=== PATIENT | male | born 1970 | race African-American/Black ===

== ENCOUNTER 2017-03-09 18:41 | Emergency (ER) | payer OTHER ==
[~2017-03-09] VITALS: Ht 170.2 cm; Wt 80.9 kg
[~2017-03-09 18:41] MED LIST: AMOXICILLIN875 MG PO; BENICAR20 MG PO; KEFLEX500 MG PO; KENALOG,ARISTOC80 G1 TP; METOPROLOL TART50 MG PO; OMEGA 3-6-91200 MG PO; OMEPRAZOLE20 MG PO; PRAVACHOL80 MG PO; ULTRAM50 MG PO; ZOFRAN4 MG PO
[2017-03-09] MEDS ORDERED: ALTOPREV40 MG PO (19:00)
[2017-03-09 19:57] LABS: HEMATOCRIT 46.2 % (38.0-50.0); MCH 31.9 PG (29.0-34.0); MCHC 35.3 G/DL (30.0-36.0); MCV 90.4 FL (86-99); PLATELET COUNT 255 K/uL (156-360); RBC DIS.WIDTH-CV 12.1 % (11.8-14.6); RBC DIS.WIDTH-SD 40.3 % (39-53); RED BLOOD COUNT 5.11 M/uL (4.00-5.50); WHITE BLOOD COUNT 6.2 K/uL (4.1-10.2)
[2017-03-09 20:05] LABS: CHLORIDE 107 mEq/L (99-109); POTASSIUM 4.3 mEq/L (3.7-5.4); SODIUM 141 mEq/L (136-147)
[2017-03-09 20:07] LABS: GLUCOSE 81 mg/dL (70-99)
[2017-03-09 20:08] LABS: ANION GAP 8 MEQ/L (2-14)
[2017-03-09 20:09] LABS: TOTAL BILIRUBIN 0.6 mg/dL (0.0-1.0)
[2017-03-09 20:10] LABS: ALKALINE PHOSPHATASE 75 IU/L (3-129)
[2017-03-09 20:11] LABS: GFR ESTIMATE (CALCULATED) > 59 mL/min/
[2017-03-09 20:12] LABS: D-DIMER ELISA 0.46 mg/L FEU (< 0.57); UREA NITROGEN (BUN) 20 mg/dL (9-23)
[2017-03-09 20:20] LABS: TROP-I INTERPRETATION NEGATIVE; TROPONIN-I < 0.01 ng/mL (0.0-0.30)
[2017-03-09 21:28] VITALS: BP 120/76
== END 2017-03-09 21:29 | disposition home or self-care (01) ==
LOC: EME 18:41
PROVIDERS: Physician Assistant
DX: R00.2 Palpitations (principal); R06.02 Shortness of breath; I10 Essential (primary) hypertension; E78.5 Hyperlipidemia, unspecified
CPT/HCPCS: 71020; 80053; 84443; 84484; 85027; 85379; 93005; 99281; 99284

== ENCOUNTER 2017-11-09 05:53 | Emergency (ER) | payer OTHER ==
[~2017-11-09] VITALS: Ht 170.2 cm; Wt 76.0 kg
[~2017-11-09 05:53] MED LIST changes: +ALTOPREV40 MG PO
[2017-11-09 06:18] LABS: HEMATOCRIT 46.2 % (38.0-50.0); MCH 32.5 PG (29.0-34.0); MCHC 34.6 G/DL (30.0-36.0); MCV 93.7 FL (86-99); MEAN PLAT.VOLUME 9.8 uM^3 (9.0-12.4); PLATELET COUNT 219 K/uL (156-360); RBC DIS.WIDTH-CV 12.1 % (11.8-14.6); RBC DIS.WIDTH-SD 42.3 % (39-53); RED BLOOD COUNT 4.93 M/uL (4.00-5.50); WHITE BLOOD COUNT 4.9 K/uL (4.1-10.2)
[2017-11-09 06:25] LABS: CHLORIDE 107 mEq/L (99-109); POTASSIUM 4.1 mEq/L (3.7-5.4); SODIUM 142 mEq/L (136-147)
[2017-11-09 06:27] LABS: GLUCOSE 89 mg/dL (70-99)
[2017-11-09 06:28] LABS: ANION GAP 9 MEQ/L (2-14)
[2017-11-09 06:29] LABS: TOTAL BILIRUBIN 0.5 mg/dL (0.0-1.0)
[2017-11-09 06:31] LABS: ALKALINE PHOSPHATASE 77 IU/L (3-129); GFR ESTIMATE (CALCULATED) > 59 mL/min/ (58.99-99999)
[2017-11-09 06:32] LABS: UREA NITROGEN (BUN) 19 mg/dL (9-23)
[2017-11-09 07:45] LABS: ADD MIUA? NO; BILIRUBIN NEGATIVE; BLOOD NEGATIVE; COLOR YELLOW ((YELLOW)); GLUCOSE (STRIP) NEGATIVE; KETONES NEGATIVE; LEUKOCYTES NEGATIVE; NITRITE NEGATIVE; PROTEIN (STRIP) NEGATIVE; SPECIFIC GRAVITY 1.021 (1.000-1.030); UCUL ADDED? NO; UROBILINOGEN 0.2 MG/DL (0.2-1.0)
[2017-11-09] MEDS ORDERED: MIRALAX17 GM PO (10:20)
[2017-11-09 10:26] VITALS: BP 116/81
== END 2017-11-09 10:37 | disposition home or self-care (01) ==
LOC: EME 05:53
DX: S39.011A Strain of muscle, fascia and tendon of abdomen, initial encounter (principal); X58.XXXA Exposure to other specified factors, initial encounter; Y93.A9 Activity, other involving cardiorespiratory exercise; K59.00 Constipation, unspecified; N20.0 Calculus of kidney; R91.1 Solitary pulmonary nodule; I10 Essential (primary) hypertension; E78.5 Hyperlipidemia, unspecified
CPT/HCPCS: 74176; 80053; 81003; 85027; 99281; 99285; J1885

== ENCOUNTER 2018-02-24 11:25 | Observation (INO) | payer SELFPAY ==
[~2018-02-24] VITALS: Ht 170.2 cm; Wt 77.1 kg
[~2018-02-24 11:25] MED LIST changes: -ALTOPREV40 MG PO; +LOVASTATIN40 MG PO; +MIRALAX17 GM PO
[2018-02-24 12:28] LABS: HEMATOCRIT 47.9 % (38.0-50.0); MCH 32.7 PG (29.0-34.0); MCHC 35.5 G/DL (30.0-36.0); MCV 92.1 FL (86-99); PLATELET COUNT 259 K/uL (156-360); RBC DIS.WIDTH-CV 12.3 % (11.8-14.6); RBC DIS.WIDTH-SD 41.8 % (39-53); WHITE BLOOD COUNT 4.7 K/uL (4.1-10.2)
[2018-02-24 12:38] LABS: CHLORIDE 105 mEq/L (99-109); POTASSIUM 4.6 mEq/L (3.7-5.4); SODIUM 138 mEq/L (136-147)
[2018-02-24 12:40] LABS: GLUCOSE 93 mg/dL (70-99)
[2018-02-24 12:43] LABS: GFR ESTIMATE (CALCULATED) > 59 mL/min/ (58.99-99999)
[2018-02-24 12:44] LABS: UREA NITROGEN (BUN) 19 mg/dL (9-23)
[2018-02-24 12:49] LABS: TROP-I INTERPRETATION NEGATIVE; TROPONIN-I < 0.01 ng/mL (0.0-0.30)
[2018-02-24 13:31] LABS: D-DIMER ELISA < 150.00 ng/mLDDU (<230)
[2018-02-24] MEDS ORDERED: DIOVAN160 MG PO (15:14)
[2018-02-24 15:40] VITALS: BP 116/75
[2018-02-24 19:41] VITALS: BP 132/58
[2018-02-25 00:05] VITALS: BP 103/57
[2018-02-25 00:58] LABS: TROP-I INTERPRETATION NEGATIVE; TROPONIN-I < 0.01 ng/mL (0.0-0.30)
[2018-02-25 05:06] VITALS: BP 114/60
[2018-02-25 05:48] LABS: HEMATOCRIT 45.5 % (38.0-50.0); HEMOGLOBIN 15.8 G/DL (12.5-16.6); MCH 32.3 PG (29.0-34.0); MCHC 34.7 G/DL (30.0-36.0); PLATELET COUNT 239 K/uL (156-360); RBC DIS.WIDTH-CV 12.5 % (11.8-14.6); RBC DIS.WIDTH-SD 43.1 % (39-53); RED BLOOD COUNT 4.89 M/uL (4.00-5.50); WHITE BLOOD COUNT 4.5 K/uL (4.1-10.2)
[2018-02-25 06:10] LABS: CHLORIDE 108 MEQ/L (99-109); CREATININE 0.9 MG/DL (0.6-1.3); GFR ESTIMATE (CALCULATED) > 59 mL/min/ (58.99-99999); GLUCOSE 95 mg/dL (70-99); POTASSIUM 4.3 MEQ/L (3.7-5.4); SODIUM 141 MEQ/L (136-147); UREA NITROGEN (BUN) 15 mg/dL (9-23)
[2018-02-25 06:13] LABS: TROP-I INTERPRETATION NEGATIVE; TROPONIN-I < 0.01 ng/mL (0.0-0.30)
[2018-02-25 07:35] VITALS: BP 108/64
[2018-02-25] MEDS ORDERED: ASPIR-LOW81 MG PO (10:35)
[2018-02-25] MEDS ORDERED: METOPROLOL TART50 MG PO (10:36)
[2018-02-25 10:50] VITALS: BP 121/75
== END 2018-02-25 11:38 | disposition home or self-care (01) ==
LOC: EME 11:25 → EDOF 14:50 → 5WEST 14:50 → ENRESERV 15:05 → 5WEST 15:37
PROVIDERS: Internal Medicine
DX: R07.89 Other chest pain (principal); R00.2 Palpitations; R42 Dizziness and giddiness; E78.00 Pure hypercholesterolemia, unspecified; I10 Essential (primary) hypertension; I49.1 Atrial premature depolarization; R00.1 Bradycardia, unspecified; E78.5 Hyperlipidemia, unspecified; Z82.49 Family history of ischemic heart disease and other diseases of the circulatory system; J45.909 Unspecified asthma, uncomplicated
CPT/HCPCS: 71046; 80048; 84484; 85027; 85379; 93005; 93306; G0378; J7030